=== PATIENT | female | born 1950 | race Two or more races ===

== ENCOUNTER 2022-05-14 20:02 | Inpatient (IN) | payer MEDICARE, BC ==
[~2022-05-14] VITALS: Ht 175.3 cm; Wt 52.2 kg
--- NOTE | 2022-05-14 20:50 | NUR ---
GPS-WEB MARKETING SPECIALIST NOTES: ADMITTED A 71-Y/O, FEMALE, FROM [facility]. ADMITTED ON VOLUNTARY STATUS. PATIENT OVERDOSED ON NORCO SHE PURCHASED ONLINE. PATIENT'S FOUND HER UNRESPONSIVE AND CALLED 911. UPON PARAMEDICS ARRIVAL PATIENT WAS GIVEN NARCAN. WHEN SHE REGAINED CONSCIOUSNESS, SHE DENIES TAKING ANY MEDICATION EXCEPT 1 TAB OF NORCO. PATIENT HAS BEEN DEPRESSED BECAUSE SHE HAS BEEN HAVING SOME GENERALIZED WEAKNESS. PATIENT IS ALSO BEEN DEPRESSED BECAUSE HER DAUGHTER IS NOT SPEAKING TO HER. UPON FACE TO FACE EVALUATION, PT IS A/OX3, APPEARS DEPRESSED, FLAT AFFECT, WITHDRAWN, ANXIOUS BUT COOPERATIVE TO CARE. SKIN ASSESSMENT DONE. SKIN IS INTACT. BELONGINGS WERE INVENTORIED AND CHECKED FOR CONTRABAND. OFFERED PNEUMONIA VACCINE BUT PATIENT REFUSED. PATIENT IS UNDER THE PSYCHIATRIC CARE OF DR. KELLEY AND MEDICAL CARE OF DIGNA SPANGLER. BED IN LOW LOCKED POSITION. SAFETY PRECAUTIONS MAINTAINED. WILL CONTINUE TO MONITOR Q15 MINS FOR MOOD, SAFETY AND BEHAVIOR. Addendum: 05/15/22 at 0653 by ZOYA IGLESIAS RN PATIENT HAS HARD OF HEARING. PATIENT HAS HEARING AID ON BOTH EARS.
[2022-05-14] MEDS ORDERED: MAGNESIUM HYDROXIDE 30 ML UDC PO PRN (21:00)
[2022-05-14] MEDS ORDERED: MAG HYDROX/AL HYDROX/SIMETH 30 ML UDC PO PRN (21:00)
[2022-05-14] MEDS ORDERED: BLOOD SUGAR DIAGNOSTIC 1 EACH STRIP IN ONE (21:00)
[2022-05-14] MEDS ORDERED: clonazePAM 0.5 MG TABLET PO PRN (21:00)
[2022-05-14 22:17] VITALS: BP 146/75
[2022-05-14] MEDS ORDERED: [UNRECOGNIZED DRUG - OTHER] (23:00)
[2022-05-14] MEDS ORDERED: PROG200C15 PO (23:00)
[2022-05-14] MEDS ORDERED: QUET25TA PO (23:00)
[2022-05-14] MEDS ORDERED: EVISTA (23:00)
[2022-05-14] MEDS ORDERED: ONDA4TAB11 PO (23:00)
[2022-05-14] MEDS ORDERED: MIRT-90 PO (23:00)
[2022-05-14] MEDS ORDERED: CYCL30DR EACHEYE (23:00)
[2022-05-14] MEDS ORDERED: PRILOSEC (23:00)
[2022-05-14] MEDS ORDERED: LEVO100T9 PO (23:00)
[2022-05-15] MEDS ORDERED: PROGESTERONE MICRONIZED PO SCH
[2022-05-15] MEDS: LEVOTHYROXINE SODIUM 100 MCG TABLET PO SCH (06:01)
[2022-05-15] MEDS: ACETAMINOPHEN 325 MG TABLET PO PRN ×3 (06:01→22:22)
[2022-05-15 08:00] VITALS: BP 140/71
[2022-05-15 08:47] LABS: ALANINE AMINOTRANSFERASE 32 U/L (12-78); ALBUMIN 3.6 g/dL (3.4-5.0); ALKALINE PHOSPHATASE 53 U/L (46-116); ASPARTATE AMINOTRANSFERASE 25 U/L (15-37); BILIRUBIN,TOTAL 0.3 mg/dL (0.2-1.0); CALCIUM, SERUM 8.6 mg/dL (8.5-10.1); CARBON DIOXIDE 30 mmol/L (21-32); CHLORIDE 101 mmol/L (98-107); CREATININE 1.1 mg/dL (0.6-1.3); GLUCOSE 96 mg/dL (74-106); POTASSIUM 4.1 mmol/L (3.5-5.1); SODIUM SERUM 137 mmol/L (136-145); TOTAL PROTEIN, SERUM 6.8 g/dL (6.4-8.2); UREA NITROGEN, BLOOD 20 mg/dL (7-18)
[2022-05-15 08:51] LABS: CHOLESTEROL 145 mg/dL (<200); HDL CHOLESTEROL 73 mg/dL (40-60); LDL 55 mg/dL (0-99); TRIGLYCERIDES 49 mg/dL (30-150)
[2022-05-15] MEDS ORDERED: Medication Not On Formulary EA (Cyclosporine (Restasis) 1 DROP) EACHEYE SCH (09:00)
--- NOTE | 2022-05-15 09:50 | NUR ---
MAITE Initial Discharge Plan: Patient currently resides at [address], [place] [address]; ([phone]) with her partner Vasquez ([phone]). Pt would want to return back home upon discharge. MAITE will work with the MD, treatment team, and family to help coordinate appropriate discharge.
--- NOTE | 2022-05-15 09:50 | NUR ---
MAITE Clinical Note: Pt brought to the hospital as voluntary. Pt overdosed on [place] that she purchased online. Patient [facility] [address] [place] [address]; ([phone]) with her partner Vasquez ([phone]). Pt would want to return back home upon discharge.
--- NOTE | 2022-05-15 09:51 | NUR ---
Social Work Note/Substance Abuse Intervention: Patient was provided with a brief substance abuse intervention and referred to [facility] ([phone]), [facility] ([phone]), and [facility] ([phone]) for abusing pills and drinking alcohol.
--- NOTE | 2022-05-15 11:27 | NUR ---
MAITE Family Contact: MAITE spoke with patient's Vasquez ([phone]) and discussed treatment plan/discharge plan. He shared his concerned with this policy writer sales that he is fearful of pt returning back home. He stated that he is possibly looking to find a different facility to take the pt too. He did not share what facility he stated that he is still searching. He requested neuro consult, MAITE requested Neuro consult and Dr. Jacob is aware, doctor had already requested.
--- NOTE | 2022-05-15 11:53 | NUR ---
MAITE Note: Pt came to this writers office and stated she would want to go to [facility]. SW notified that partner is looking into a treatment center for her. She was not agreeable of his decision and stated "he does not get it". MAITE contacted partner Vasquez ([phone]) while pt present and stated that they need to make a decision in regards to what will be the best appropriate and safe place for pt. Vasquez stated that they will both discuss and let this real estate underwriter know what the best plan will be.
--- NOTE | 2022-05-15 15:20 | NUR ---
MAITE Note: MAITE contacted [facility] and spoke with Chris from admissions who stated that cost for shared room is 60k and private room is 80k for residential. SW shared this information with pt and pt stated that it is expensive and would want this junior technical writer to find a different facility. MAITE contacted [facility] ([phone]) and spoke with Gio matute and sent pt's referral packet. SW sent H & P, progress notes, and medication list. Gio stated that since pt has PPO it might cover her cost at the facility, billing department is currently running her insurance and will contact this junior technical writer.
--- NOTE | 2022-05-15 15:22 | NUR ---
MAITE Note: MAITE received a call from pt's psychologist Isa Sibley ([phone]) who stated that it is not safe for the pt to return back home and pt would need to go to a residential program. MAITE explained that pt would have to be agreeable with this. She did state that she is trying to find out of their is a DPOA and they will contact this writer editor. Addendum: 05/15/22 at 1534 by MAITE MOLINA MAITE advised if she has concerns to make an APS report if she has any sort of assumptions.
--- NOTE | 2022-05-15 15:29 | NUR ---
SW Friend Contact: Friend Niurka ([phone]) contacted this video game script writer and stated that pt might have a DPOA and will fax paperworks to this video game script writer and this video game script writer will review.
--- NOTE | 2022-05-15 15:56 | NUR ---
SW Contact: SW received DPOA documents from pt's friend Niurka ([phone]). GOPI is pt's sister Smiley ([phone]).
--- NOTE | 2022-05-15 15:57 | NUR ---
DPOA: SW received documents of DPOA and it is pt's sister Smiley ([phone]). SW placed the copy in the chart and notified the unit.
--- NOTE | 2022-05-15 15:57 | NUR ---
MAITE Family Contact: MAITE contacted pt's GOPI Reis ([phone]) and left a detailed voicemail of pt's admission and notified that this communications writer will be out of the office 05/16 and will return 05/17 and if any questions staff can be notified.
[2022-05-15 16:00] VITALS: BP 126/73
[2022-05-15 17:34] LABS: THYROID STIMULATING HORMONE 18.917 uIU/mL (0.358-3.74)
[2022-05-15] MEDS ORDERED: THYR60TA2 PO (19:34)
[2022-05-15] MEDS ORDERED: LISI1TAB32 PO (19:34)
[2022-05-15] MEDS ORDERED: QUET25TA PO (19:34)
[2022-05-15] MEDS ORDERED: GABA600T12 PO (19:34)
[2022-05-15] MEDS ORDERED: RALO60TA PO (19:34)
[2022-05-15] MEDS ORDERED: ROSU20TA2 PO (19:34)
[2022-05-15] MEDS ORDERED: GABA300C PO (19:34)
[2022-05-15 20:12] VITALS: BP 132/90
[2022-05-15] MEDS: MIRTAZAPINE 15 MG TABLET PO SCH (21:11)
[2022-05-15] MEDS: QUETIAPINE FUMARATE 25 MG TABLET PO SCH (21:11)
[2022-05-15] MEDS: TEMAZEPAM 15 MG CAPSULE PO PRN (22:22)
[2022-05-16] MEDS: LEVOTHYROXINE SODIUM 100 MCG TABLET PO SCH ×2 (06:21→07:50)
[2022-05-16] MEDS: ACETAMINOPHEN 325 MG TABLET PO PRN ×2 (06:22→09:19)
[2022-05-16] MEDS: ONDANSETRON 4 MG TAB.RAPDIS PO PRN ×2 (07:50→16:05)
[2022-05-16 08:00] VITALS: BP 127/63
--- NOTE | 2022-05-16 15:36 | NUR ---
RN-CO: CALLED [facility]AH[facility] REID PER DR KELLEY'S ORDER TO EVALUATE THE PT.
--- NOTE | 2022-05-16 15:38 | NUR ---
RNRizwanaCO: ART WILL HERE.
[2022-05-16 16:00] VITALS: BP 140/80
[2022-05-16] MEDS: ENSURE ENLIVE CHOC 237 ML CAN PO SCH (17:25)
--- NOTE | 2022-05-16 19:59 | NUR ---
RN NOTES RECEIVED PT IN BED READING A BOOK AA0X3.URBAN WELL ON RM AIR NO SIGN SOB/DISTRESS NOTED.NO COMPALINE OF PAIN/DISCOMFORT AT THIS TIME.BED LOCKED AND LOW POSITION.NO BEHAVIORAL CHANGES AT THIS TIME.CONTINUE TO MONITOR.
[2022-05-16 20:00] VITALS: BP 108/74
[2022-05-16] MEDS: MIRTAZAPINE 15 MG TABLET PO SCH (21:02)
[2022-05-16] MEDS: QUETIAPINE FUMARATE 25 MG TABLET PO SCH (21:02)
[2022-05-17] MEDS: TEMAZEPAM 15 MG CAPSULE PO PRN (02:57)
[2022-05-17] MEDS: ACETAMINOPHEN 325 MG TABLET PO PRN (04:57)
[2022-05-17 08:00] VITALS: BP 93/62
[2022-05-17] MEDS: ENSURE ENLIVE CHOC 237 ML CAN PO SCH ×3 (08:10→17:10)
[2022-05-17] MEDS: ONDANSETRON 4 MG TAB.RAPDIS PO PRN (09:13)
--- NOTE | 2022-05-17 09:13 | NUR ---
RN NOTE PATIENT C/O NAUSEA, ZOFRAN GIVEN ORDERED. WILL CONTINUE TO MONITOR PATIENT.
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
--- NOTE | 2022-05-17 09:49 | NUR ---
MAITE Note: Received a call from pt's doctor requesting to speak to psychiatrist. Dr. Perea ([phone]). SW notified Dr. Jacob.
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
--- NOTE | 2022-05-17 14:28 | NUR ---
SW Contact: SW received a call from pt's DPOA Smiley ([phone]) and stated that pt's partner found [facility] ([phone]) and would want pt to go there. MAITE received a call from pt's partner aVsquez ([phone]) and he stated that he would want pt to be discharged today and take her to [facility]. MAITE tried to explain the process that the facility needs to approve pt first before pt being discharged. He was insisting on pt being discharged.
--- NOTE | 2022-05-17 14:30 | NUR ---
Facility Contact: MAITE contacted [facility] ([phone]) and spoke with admin Ani who stated that this documentation writer would need to send clinicals before pt transferring or accepting pt. They would need to screen the pt. MAITE sent clinicals to ([phone]) for review. Ani stated that they do not have a bed available today 05/17 and would have to see if they have a bed available Sunday 05/20. She stated first they would have to review clinicals.
--- NOTE | 2022-05-17 14:32 | NUR ---
Facility Visit: [facility] Gabbi ([phone]) admin came to visit the pt and to evaluate the pt. Gabbi stated pt is acceptable if she agrees.
--- NOTE | 2022-05-17 15:16 | NUR ---
SW Contact: MAITE contacted pt's DPOA Smiley bazan ([phone]) and notified that Vasquez wants pt to be discharged today and this radio script writer reported pt does not have a safe place to go to at this time and pt wants to go to a detox facility. Sister stated that she will contact Vasquez and discuss this.
[2022-05-17 15:53] VITALS: BP 128/74
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
--- NOTE | 2022-05-17 18:29 | NUR ---
RN NOTES PATIENT IN BED AWAKE, A/O X4, VERBALLY RESPONSIVE AND ABLE TO MAKE NEEDS KNOWN. NO SIGNS OF ACUTE DISTRESS NOTED. READING A BOOK. STABLE ON ROOM AIR, BREATHING EVEN AND UNLABORED. NO C/O PAIN AT THIS TIME. SAFETY MEASURE MAINTAINED. WILL ENDORSE TO NEXT SHIFT FOR CONTINUITY OF CARE.
--- NOTE | 2022-05-17 19:33 | NUR ---
RN NOTES RECEIVED PT IN BED WITH A BOYFRIEND AA0X3.URBAN WELL ON RM AIR NO SIGN SOB/DISTRESS NOTED.NO COMPALINE OF PAIN/DISCOMFORT AT THIS TIME.BED LOCKED AND LOW POSITION.NO BEHAVIORAL CHANGES AT THIS TIME.CONTINUE TO MONITOR.
[2022-05-17] MEDS ORDERED: ASPI-1165 PO (19:34)
[2022-05-17 20:00] VITALS: BP 148/73
[2022-05-17] MEDS: MIRTAZAPINE 15 MG TABLET PO SCH (21:12)
[2022-05-17] MEDS: QUETIAPINE FUMARATE 25 MG TABLET PO SCH (21:13)
[2022-05-18] MEDS: LEVOTHYROXINE SODIUM 100 MCG TABLET PO SCH (06:09)
[2022-05-18] MEDS: ONDANSETRON 4 MG TAB.RAPDIS PO PRN (07:57)
[2022-05-18] MEDS: ENSURE ENLIVE CHOC 237 ML CAN PO SCH ×3 (07:57→17:22)
[2022-05-18 08:00] VITALS: BP 101/64
[2022-05-18 15:56] VITALS: BP 114/70
--- NOTE | 2022-05-18 18:38 | NUR ---
RN NOTES PATIENT IN BED AWAKE, READING A BOOK. A/O X4, VERBALLY RESPONSIVE AND ABLE TO MAKE NEEDS KNOWN. NO SIGNS OF ACUTE DISTRESS NOTED. STABLE ON ROOM AIR, BREATHING EVEN AND UNLABORED. NO C/O PAIN AT THIS TIME. SAFETY MEASURE MAINTAINED. WILL ENDORSE TO NEXT SHIFT FOR CONTINUITY OF CARE.
--- NOTE | 2022-05-18 19:26 | NUR ---
GPS RN NOTE, RECEIVED PATIENT AWAKE AND IN BED, NO S/S OR COMPLAINTS OF PAIN AT THIS TIME. PATIENT IS DISPLAYING NO S/S OF APPARENT DISTRESS AT THIS TIME. PATIENT BREATHING IS UNLABORED WITH EQUAL RISE AND FALL OF THE CHEST. PATIENT IS ALERT AND ORIENTED X 3 ON ROOM AIR WITH A SPO2 95%. PATIENT IS COMPLIANT WITH MEDICATIONS, ANXIOUS, MAKES NEEDS KNOWN, DISORGANIZED, AND COOPERATIVE. PATIENT DENIES SUICIDAL AND HOMICIDAL IDEATIONS AT THIS TIME. PATIENT ASSISTED WITH TURNING AND REPOSITIONING Q2HR AND PRN FOR COMFORT AND CIRCULATION. PATIENT HAS NO NEEDS AT THIS TIME. PATIENT EDUCATED ON THE USE OF THE CALL PATEL. PATIENT BED SIDE RAILS UP X 2 FOR SAFETY. PATIENT BED IS LOCKED, LOW, WITH BED ALARM ON. WILL CONTINUE TO MONITOR THIS PATIENT Q15 MINUTES WITH THE HELP OF STAFF TO MAINTAIN SAFETY.
[2022-05-18 21:10] VITALS: BP 114/75
[2022-05-18] MEDS: MIRTAZAPINE 15 MG TABLET PO SCH (21:20)
[2022-05-18] MEDS: QUETIAPINE FUMARATE 25 MG TABLET PO SCH (21:21)
[2022-05-19] MEDS: TEMAZEPAM 15 MG CAPSULE PO PRN (00:50)
--- NOTE | 2022-05-19 00:53 | NUR ---
GPS RN NOTE, PATIENT HAS A COMPLAINT OF NOT BEING ABLE TO SLEEP AND IS REQUESTING RESTORIL AT THIS TIME. PATIENT VITAL SIGNS ARE STABLE. GAVE RESTORIL 15MG PO HS PRN ORDERED. WILL REASSESS FOR INSOMNIA AND I WILL CONTINUE TO MONITOR THIS PATIENT WITH THE HELP OF STAFF.
[2022-05-19 08:00] VITALS: BP 118/67
[2022-05-19] MEDS: LEVOTHYROXINE SODIUM 100 MCG TABLET PO SCH (08:16)
[2022-05-19] MEDS: ENSURE ENLIVE CHOC 237 ML CAN PO SCH ×3 (08:17→16:33)
[2022-05-19] MEDS: ONDANSETRON 4 MG TAB.RAPDIS PO PRN (09:31)
--- NOTE | 2022-05-19 14:34 | NUR ---
RN-CO: PATIENT IN THE ROOM,AND IN A PLEASANT MOOD. SHE JUST FINISHED HAVING A PHONE W/HER SPOUSE. PATIENT REMAINS IN HER ROOM MOST OF THE TIME, BUT HAS COME OUTA FEW TIMES TO TALK. NO APPARENT PHYSICAL DISTRESS.
[2022-05-19 16:00] VITALS: BP 107/70
--- NOTE | 2022-05-19 19:15 | NUR ---
GPS RN NOTES RECEIVED PATIENT IN BED AWAKE, ALERT AND ORIENTED X3, NO S/SX OF ACUTE DISTRESS NOTED. PATIENT REMAINS DEPRESSED, ANXIOUS AT TIMES, GUARDED. DENIED SI/HI/AVH AT THIS TIME. VERBALIZATION OF FEELINGS ENCOURAGED. ENCOURAGED PATIENT TO ATTEND IN GROUP ACTIVITIES. SAFETY PRECAUTIONS MAINTAINED. WILL CONTINUE TO MONITOR Q15MIN ROUNDS FOR SAFETY AND BEHAVIOR.
[2022-05-19 20:13] VITALS: BP 134/97
[2022-05-19] MEDS: MIRTAZAPINE 15 MG TABLET PO SCH (21:12)
[2022-05-19] MEDS: QUETIAPINE FUMARATE 25 MG TABLET PO SCH (21:12)
[2022-05-20] MEDS: TEMAZEPAM 15 MG CAPSULE PO PRN ×2 (01:10→21:25)
[2022-05-20] MEDS: LEVOTHYROXINE SODIUM 100 MCG TABLET PO SCH (06:50)
--- NOTE | 2022-05-20 07:57 | NUR ---
Facility Contact: MAITE received a call from Ani jaime from [facility] ([phone]) who stated that they would need to assess the pt before accepting the pt. MAITE contacted back to scheduled assessment time. SW left voicemail.
[2022-05-20] MEDS: ENSURE ENLIVE CHOC 237 ML CAN PO SCH ×3 (07:59→16:35)
[2022-05-20 08:00] VITALS: BP 107/62
[2022-05-20] MEDS: ONDANSETRON 4 MG TAB.RAPDIS PO PRN (09:05)
--- NOTE | 2022-05-20 13:09 | NUR ---
Facility Contact: SW received a call from Ani jaime from [facility] ([phone]) who stated that they will assess pt tomorrow 05/21 at 12AM.
--- NOTE | 2022-05-20 13:10 | NUR ---
MAITE Family Contact: MAITE contacted pt's GOPI Reis ([phone]) and notified [facility] will assess pt at 12AM tomorrow 05/21.
--- NOTE | 2022-05-20 13:25 | NUR ---
Doctor Contact: SW received a call from pt's primary doctor Dr. Mcdonald ([phone]) who wanted updates on pt.
--- NOTE | 2022-05-20 15:38 | NUR ---
Facility Contact: MAITE received a call from Ani jaime from [facility] ([phone]) change assessment time from 11:30AM.
[2022-05-20 17:00] VITALS: BP 142/84
[2022-05-20 20:33] VITALS: BP 142/85
[2022-05-20] MEDS: MIRTAZAPINE 15 MG TABLET PO SCH (21:25)
[2022-05-20] MEDS: QUETIAPINE FUMARATE 25 MG TABLET PO SCH (21:25)
--- NOTE | 2022-05-20 21:25 | NUR ---
GPS RN NOTE PT REQUESTING FOR SLEEPING MED, RESTORIL 7.5 MG PO GIVEN. CONTINUE TO MONITOR.
--- NOTE | 2022-05-20 22:25 | NUR ---
GPS RN NOTE PT FALL BACK TO SLEEP, NO DISTRESS OR DISCOMFORT NOTED.
[2022-05-21] MEDS: LEVOTHYROXINE SODIUM 100 MCG TABLET PO SCH (07:12)
[2022-05-21 08:00] VITALS: BP 129/84
[2022-05-21] MEDS: ENSURE ENLIVE CHOC 237 ML CAN PO SCH ×3 (08:37→17:15)
[2022-05-21] MEDS: ONDANSETRON 4 MG TAB.RAPDIS PO PRN (09:25)
--- NOTE | 2022-05-21 14:03 | NUR ---
Facility Contact: MAITE spoke with Ani jaime from [facility] ([phone]) assessed pt today and stated that pt is accepted but would need to do a 45 minute assessment with pt.
--- NOTE | 2022-05-21 15:23 | NUR ---
Dr. De León mentioned the patient's result of thyroid was abnormal and not have been placed medication. Informed Dr. Mcclendon regarding above.
--- NOTE | 2022-05-21 15:29 | NUR ---
Friend Contact: Patients friend Niurka ([phone]) will be picking pt up tomorrow 05/22/2022 at 9AM.
--- NOTE | 2022-05-21 15:32 | NUR ---
MAITE Family Contact: MAITE contacted pt's DPOA Smiley ([phone]) and notified that pt will be discharged 05/22/2022 to [facility] and friend Niurka will be picking her up.
--- NOTE | 2022-05-21 15:36 | NUR ---
MAITE Note: SW received a call from pt's psychologist Isa Sibley ([phone]) and notified that pt will be discharged to Residential program at [facility] on 05/22/2022.
[2022-05-21 16:00] VITALS: BP 133/86
--- NOTE | 2022-05-21 16:01 | NUR ---
MAITE Coordination of Care: Ani jaime ([phone]) who did intake process with pt and have accepted pt. Explained pt would need to go to [address] [address]; to be admitted to [facility] and will require a Medical Clearance for CRC. Then pt will be admitted to: [facility] located at [address] [place] [address]; ([phone]).
[2022-05-21 19:51] VITALS: BP 138/69
--- NOTE | 2022-05-21 19:54 | NUR ---
GPS RN OPENING NOTES: RECEIVED PATIENT IN ROOM, AWAKE A/O X3. APPEARS DEPRESSED, FLAT AFFECT, PASSIVE, GUARDED. DENIES SI, HI AND PAIN AT THIS TIME. NO S/S OF DISTRESS. RESPIRATION EVEN AND UNLABORED WITH EQUAL RISE AND FALL OF THE CHEST, ON ROOM AIR. OFFERED FLUID AND SNACKS TOLERATED. BED IN LOWEST POSITION AND LOCKED, SIDE RAILS UP X2 FOR SAFETY. WILL CONTINUE TO MONITOR Q15 FOR MOOD, SAFETY AND BEHAVIOR.
[2022-05-21] MEDS: MIRTAZAPINE 15 MG TABLET PO SCH (21:06)
[2022-05-21] MEDS: TEMAZEPAM 15 MG CAPSULE PO PRN (21:52)
--- NOTE | 2022-05-21 21:58 | NUR ---
GPS RN NOTES: PATIENT REQUESTED FOR SLEEP MEDICATION. RESTORIL 15MG GIVEN PO AT 2152. WILL CONTINUE TO MONITOR.
[2022-05-21] MEDS ORDERED: QUETIAPINE FUMARATE 25 MG TABLET PO SCH (22:00)
[2022-05-22] MEDS: LEVOTHYROXINE SODIUM 100 MCG TABLET PO SCH (06:51)
--- NOTE | 2022-05-22 06:59 | NUR ---
GPS RN CLOSING NOTES: PATIENT IS AWAKE, A/O X3. PATIENT SLEPT 8HRS THIS SHIFT. NO S/S OF DISTRESS. RESPIRATION EVEN AND UNLABORED WITH EQUAL RISE AND FALL OF THE CHEST, ON ROOM AIR. ALL PATIENT CARE NEEDS HAVE BEEN MET ANTICIPATED. WILL CONTINUE TO MONITOR Q15 FOR SAFETY, MOOD AND BEHAVIOR AND ENDORSE TO AM SHIFT.
[2022-05-22] MEDS: ACETAMINOPHEN 325 MG TABLET PO PRN (07:43)
[2022-05-22] MEDS: ONDANSETRON 4 MG TAB.RAPDIS PO PRN ×2 (07:43→09:35)
[2022-05-22] MEDS: ENSURE ENLIVE CHOC 237 ML CAN PO SCH (07:54)
--- NOTE | 2022-05-22 07:58 | NUR ---
Patient complains of 3/10 headache and nausea. Zofran 4mg and Tylenol 650mg administered @1743. Will reassess for effectiveness
[2022-05-22 08:00] VITALS: BP 118/77
--- NOTE | 2022-05-22 08:14 | NUR ---
MAITE Discharge Note: Patient will be discharged to [facility] located at [address] [place] [address]; ([phone]). Patient will first have to go to [address] [address]; to be admitted to [facility]. Patient will be going to Patients friend Niurka ([phone]) will picking table worker it at 9AM. Patients DPOA sister Smiley ([phone]) and is aware and agreeable of discharge. Patient is alert and oriented x3 and wants to go to facility. MAITE spoke with Ani ([phone]) admissions who stated pt is accepted today. Patient denies visual/auditory hallucinations. Patient denies suicidal or homicidal ideation. Patient will follow up with (Psychiatrist) Dr. Jonathon Sarabia [address] [address]; ([phone]). Patient will follow up with (Car Sales Associate) Dr. Darnell Lugo located at [address] [place] [address]; ([phone]). Patient presents with euthymic mood and congruent affect.
--- NOTE | 2022-05-22 09:00 | NUR ---
Patient discharged to [facility] in stable condition.Compliant with medications cooperative with treatment plans Patient denies SI/HI/AVH .Behavior improved ,psychiatric tx plans met medical tx plans differed for for continual monitoring .Educated pt about after care plan (Exit -care)and copy provided .Returned personal belongings and all medications from home to patient med list and prescription given and explained to patient able to verbalize understanding .Vs stable ,no c/o pain Patient seen by MARIA E HESS covering Dr. Styles with discharge instructions and Dr.Sam Dejesus called back with discharge orders ,all orders carried out. .Patient discharge at 0900 with her friend .
== END 2022-05-22 09:00 | DRG 885 ==
LOC: GPS 20:39
PROVIDERS: ADMIT Nurse Practitioner Psychiatric/Mental Health
DX: F33.2 Major depressive disorder, recurrent severe without psychotic features (principal); R45.851 Suicidal ideations; F41.9 Anxiety disorder, unspecified; E03.9 Hypothyroidism, unspecified; K21.9 Gastro-esophageal reflux disease without esophagitis; R26.9 Unspecified abnormalities of gait and mobility; Z79.899 Other long term (current) drug therapy; E86.0 Dehydration; F13.10 Sedative, hypnotic or anxiolytic abuse, uncomplicated; T42.4X1D Poisoning by benzodiazepines, accidental (unintentional), subsequent encounter
CPT/HCPCS: 36415; 80053-TC; 80061-TC; 82607-TC; 82962-TC; 84439-TC; 84443-TC; 87081-TC; 97116-TC; 97530-TC; Q0162